=== PATIENT | male | born 1965 | race Caucasian/White ===

== ENCOUNTER 2024-02-06 12:14 | Emergency (ER) | payer OTHER ==
[2024-02-06 13:40] LABS: #Basophils 0.03 10x3/uL (0.0-0.2); #Eosinphils 0.14 10x3/uL (0.0-0.5); #Monocytes 0.36 10x3/uL (0.0-1.1); #Neutrophils 3.74 10x3/uL (1.5-8.4); %Basophils 0.5 % (0.0-2.0); %Eosinophils 2.5 % (0.0-6.0); %Lymphocytes 24.5 % (18.0-47.0); %Monocytes 6.3 % (0.0-10.0); Hematocrit 35.5 % (38.8-50.0); Hemoglobin 12.1 g/dL (13.5-17.5); Mean Corpuscular HGB CONC 34.1 g/dL (32.0-36.0); Mean Corpuscular Hemoglobin 33.3 pg (27.0-33.0); Mean Corpuscular Volume 97.8 fL (81.2-95.1); Mean Platelet Volume 11.1 fL (7.4-10.4); Platelet Count 134 10x3/uL (150-450); Red Blood Cell (RBC) Count 3.63 10x6/uL (4.32-5.72); White Blood Cell (WBC) Count 5.7 10x3/uL (3.5-10.5)
[2024-02-06 13:56] LABS: ALT (SGPT) 8 U/L (8-55); AST (SGOT) 17 U/L (5-34); Alkaline Phosphatase 83 U/L (40-110); Anion Gap 18 mmol/L (10-20); BUN (Urea Nitrogen) 82 mg/dL (8.4-25.7); Bilirubin, Total 0.3 mg/dL (0.2-1.2); Calc. Creatinine Clearance 0 mL/min (70-130); Calcium 7.9 mg/dL (7.8-10.44); Carbon Dioxide 23 mmol/L (22-29); Chloride 103 mmol/L (98-107); Estimated GFR 8; Globulin 3.5 g/dL (2.4-3.5); Glucose 144 mg/dL (70-105); Protein, Total 6.5 g/dL (6.0-8.3); Sodium 139 mmol/L (136-145)
[2024-02-06 14:02] LABS: Troponin I 0.039 ng/mL (< 0.028)
[2024-02-06 15:16] LABS: Troponin I 0.039 ng/mL (< 0.028)
== END 2024-02-06 17:45 | disposition home or self-care (01) ==
LOC: CSHERS 12:14
DX: T43.221A Poisoning by selective serotonin reuptake inhibitors, accidental (unintentional), initial encounter (principal); R53.1 Weakness; J44.9 Chronic obstructive pulmonary disease, unspecified; E11.9 Type 2 diabetes mellitus without complications; F17.210 Nicotine dependence, cigarettes, uncomplicated; Z79.4 Long term (current) use of insulin
CPT/HCPCS: 36415; 71045; 80053; 83880; 84484; 85025; 93005; 93010

== ENCOUNTER 2024-04-09 11:09 | Outpatient (CLI) | payer OTHER | END 2024-04-09 11:10 | disposition home or self-care (01) | LOC: CSHSLEEP 11:09 | PROVIDERS: ATTEND Family Medicine | DX: G47.33 Obstructive sleep apnea (adult) (pediatric) (principal); F41.9 Anxiety disorder, unspecified; E11.9 Type 2 diabetes mellitus without complications; E66.9 Obesity, unspecified; Z68.33 Body mass index [BMI] 33.0-33.9, adult; I63.9 Cerebral infarction, unspecified; J44.9 Chronic obstructive pulmonary disease, unspecified; I25.10 Atherosclerotic heart disease of native coronary artery without angina pectoris; I11.0 Hypertensive heart disease with heart failure; I50.9 Heart failure, unspecified | CPT/HCPCS: 95811 ==

== ENCOUNTER 2025-02-14 08:40 | Outpatient (CLI) | payer MEDICAID ==
[2025-02-14 10:47] LABS: INR-International Normal Ratio 1.2; PTT 27.4 sec (22.0-33.0); Prothrombin Time 12.6 sec (9.5-12.1)
[2025-02-14 10:53] LABS: Anion Gap 18 mmol/L (10-20); BUN (Urea Nitrogen) 33 mg/dL (8.4-25.7); Calc. Creatinine Clearance 0 mL/min (70-130); Calcium 9.2 mg/dL (7.8-10.44); Carbon Dioxide 27 mmol/L (22-29); Chloride 99 mmol/L (98-107); Glucose 103 mg/dL (70-105); Potassium 4.2 mmol/L (3.5-5.1); Sodium 140 mmol/L (136-145)
[2025-02-14 10:58] LABS: Hematocrit 38.2 % (38.8-50.0); Hemoglobin 11.7 g/dL (13.5-17.5); Mean Corpuscular Hemoglobin 31.9 pg (27.0-33.0); Mean Corpuscular Volume 104.1 fL (81.2-95.1); Red Blood Cell (RBC) Count 3.67 10x6/uL (4.32-5.72); White Blood Cell (WBC) Count 3.62 10x3/uL (3.5-10.5)
[2025-02-14 11:18] LABS: Platelet Count 114 10x3/uL (130-400)
== END 2025-02-14 08:41 | disposition home or self-care (01) ==
LOC: CSHLAB 08:40
PROVIDERS: ATTEND Internal Medicine Cardiovascular Disease
DX: Z01.812 Encounter for preprocedural laboratory examination (principal); I25.5 Ischemic cardiomyopathy
CPT/HCPCS: 80048; 85027; 85610; 85730

== ENCOUNTER 2025-02-19 09:57 | Day surgery (SDC) | payer MEDICAID ==
[2025-02-19] MEDS ORDERED: PROPOFOL 20 ML ONE (11:21)
[2025-02-19] MEDS ORDERED: KETAMINE 100 MG/ML (5ML VIAL) ONE (11:21)
[2025-02-19] MEDS ORDERED: CEFAZOLIN 1 GM VIAL ONE ×2 (11:57→12:20)
[2025-02-19 12:29] VITALS: BP 137/65; TEMP 97.9
[2025-02-19] MEDS ORDERED: Lidocaine 1% (PF) 30 ML VIAL ONE (12:50)
== END 2025-02-19 17:40 | disposition home or self-care (01) ==
LOC: CSHSDC 09:57
PROVIDERS: ATTEND Internal Medicine Cardiovascular Disease
PROC: 0JH608Z Insertion of Defibrillator Generator into Chest Subcutaneous Tissue and Fascia, Open Approach (ICD-10-PCS; principal; 2025-02-19)
PROC: 02HK3KZ Insertion of Defibrillator Lead into Right Ventricle, Percutaneous Approach (ICD-10-PCS; principal; 2025-02-19)
DX: I13.2 Hypertensive heart and chronic kidney disease with heart failure and with stage 5 chronic kidney disease, or end stage renal disease (principal); I50.22 Chronic systolic (congestive) heart failure; N18.6 End stage renal disease; I25.5 Ischemic cardiomyopathy; I25.10 Atherosclerotic heart disease of native coronary artery without angina pectoris; J44.9 Chronic obstructive pulmonary disease, unspecified; E11.22 Type 2 diabetes mellitus with diabetic chronic kidney disease; Z99.2 Dependence on renal dialysis; Z95.1 Presence of aortocoronary bypass graft; Z88.8 Allergy status to other drugs, medicaments and biological substances; Z91.030 Bee allergy status; Z90.49 Acquired absence of other specified parts of digestive tract; Z87.891 Personal history of nicotine dependence; Z79.02 Long term (current) use of antithrombotics/antiplatelets; Z79.84 Long term (current) use of oral hypoglycemic drugs; Z79.899 Other long term (current) drug therapy
CPT/HCPCS: 33249; 71045; 93641; C1721; C1763; C1777; J0690; J1580; J2250; J2704; J3373

== ENCOUNTER 2025-04-09 13:11 | Outpatient (CLI) | payer MEDICAID | END 2025-04-09 13:12 | disposition home or self-care (01) | LOC: CSHRAD 13:11 | PROVIDERS: ATTEND Internal Medicine Nephrology | DX: Z11.1 Encounter for screening for respiratory tuberculosis (principal) | CPT/HCPCS: 71046 ==

== ENCOUNTER 2025-05-09 09:16 | Outpatient (CLI) | payer MEDICAID | END 2025-05-09 09:17 | disposition home or self-care (01) | LOC: CSHWCC 09:16 | PROVIDERS: ATTEND Nurse Practitioner Family | DX: I87.333 Chronic venous hypertension (idiopathic) with ulcer and inflammation of bilateral lower extremity (principal); E11.622 Type 2 diabetes mellitus with other skin ulcer; E11.40 Type 2 diabetes mellitus with diabetic neuropathy, unspecified; E11.22 Type 2 diabetes mellitus with diabetic chronic kidney disease; E11.51 Type 2 diabetes mellitus with diabetic peripheral angiopathy without gangrene; L97.812 Non-pressure chronic ulcer of other part of right lower leg with fat layer exposed; L97.822 Non-pressure chronic ulcer of other part of left lower leg with fat layer exposed; I50.22 Chronic systolic (congestive) heart failure; D50.8 Other iron deficiency anemias; J44.9 Chronic obstructive pulmonary disease, unspecified; Z86.73 Personal history of transient ischemic attack (TIA), and cerebral infarction without residual deficits | CPT/HCPCS: 11042; 11045 ==

== ENCOUNTER 2025-05-23 09:01 | Outpatient (CLI) | payer MEDICAID | END 2025-05-23 09:02 | disposition home or self-care (01) | LOC: CSHWCC 09:01 | PROVIDERS: ATTEND Nurse Practitioner Family | DX: I87.333 Chronic venous hypertension (idiopathic) with ulcer and inflammation of bilateral lower extremity (principal); E11.622 Type 2 diabetes mellitus with other skin ulcer; L97.812 Non-pressure chronic ulcer of other part of right lower leg with fat layer exposed; L97.822 Non-pressure chronic ulcer of other part of left lower leg with fat layer exposed; E11.22 Type 2 diabetes mellitus with diabetic chronic kidney disease; N18.6 End stage renal disease; D63.1 Anemia in chronic kidney disease; E11.51 Type 2 diabetes mellitus with diabetic peripheral angiopathy without gangrene; E11.40 Type 2 diabetes mellitus with diabetic neuropathy, unspecified; J44.9 Chronic obstructive pulmonary disease, unspecified; I50.22 Chronic systolic (congestive) heart failure; D50.8 Other iron deficiency anemias; Z86.73 Personal history of transient ischemic attack (TIA), and cerebral infarction without residual deficits | CPT/HCPCS: 11042; 99214; G0463 ==

== ENCOUNTER 2025-05-29 15:53 | Emergency (ER) | payer MEDICAID ==
[2025-05-29 16:40] LABS: Hematocrit 39.8 % (38.8-50.0); Hemoglobin 13.0 g/dL (13.5-17.5); Mean Corpuscular Hemoglobin 34.8 pg (27.0-33.0); Mean Corpuscular Volume 106.4 fL (81.2-95.1); Platelet Count 163 10x3/uL (150-450); Red Blood Cell (RBC) Count 3.74 10x6/uL (4.32-5.72); White Blood Cell (WBC) Count 7.59 10x3/uL (3.5-10.5)
[2025-05-29 16:52] LABS: ALT (SGPT) 9 U/L (Less than 45); AST (SGOT) 20 U/L (11-34); Albumin 3.4 g/dL (3.1-4.5); Alkaline Phosphatase 104 U/L (40-110); Anion Gap 21 mmol/L (10-20); BUN (Urea Nitrogen) 25 mg/dL (8.4-25.7); Bilirubin, Total 1.4 mg/dL (0.3-1.2); CK (CPK) 62 U/L (30-200); Calc. Creatinine Clearance 0 mL/min (70-130); Calcium 9.5 mg/dL (7.8-10.44); Carbon Dioxide 25 mmol/L (22-29); Chloride 96 mmol/L (98-107); Globulin 4.7 g/dL (2.4-3.5); Glucose 153 mg/dL (70-105); Magnesium 1.9 mg/dL (1.6-2.6); Potassium 4.3 mmol/L (3.5-5.1); Sodium 138 mmol/L (136-145)
[2025-05-29] MEDS ORDERED: Ketorolac Tromethamine 30 MG (1 mL) VIAL ONE (17:11)
[2025-05-29 17:22] LABS: Anisocytosis MODERATE=16-30 cells (100X) (0-5/hpf); MDiff Complete? YES; Macrocytosis MODERATE=16-30 cells (100X) (0-5/hpf); Platelet Adequacy Comment Appears Adequate
== END 2025-05-29 17:49 | disposition home or self-care (01) ==
LOC: CSHERS 15:53
DX: J10.1 Influenza due to other identified influenza virus with other respiratory manifestations (principal); J44.9 Chronic obstructive pulmonary disease, unspecified; E11.22 Type 2 diabetes mellitus with diabetic chronic kidney disease; I12.0 Hypertensive chronic kidney disease with stage 5 chronic kidney disease or end stage renal disease; N18.6 End stage renal disease; Z95.1 Presence of aortocoronary bypass graft; F17.290 Nicotine dependence, other tobacco product, uncomplicated; Z79.899 Other long term (current) drug therapy; Z79.84 Long term (current) use of oral hypoglycemic drugs
CPT/HCPCS: 36415; 71045; 80053; 82550; 83605; 83735; 85025; 87040; 87428; 93005; 96374; J1885

== ENCOUNTER 2025-05-31 08:18 | Emergency (ER) | payer MEDICAID ==
[2025-05-31 09:41] LABS: Hematocrit 35.5 % (38.8-50.0); Hemoglobin 11.4 g/dL (13.5-17.5); Mean Corpuscular Hemoglobin 35.0 pg (27.0-33.0); Mean Corpuscular Volume 108.9 fL (81.2-95.1); Platelet Count 100 10x3/uL (150-450); Red Blood Cell (RBC) Count 3.26 10x6/uL (4.32-5.72); White Blood Cell (WBC) Count 8.50 10x3/uL (3.5-10.5)
[2025-05-31 10:01] LABS: ALT (SGPT) 10 U/L (Less than 45); AST (SGOT) 39 U/L (11-34); Albumin 2.5 g/dL (3.1-4.5); Alkaline Phosphatase 68 U/L (40-110); Anion Gap 25 mmol/L (10-20); BUN (Urea Nitrogen) 56 mg/dL (8.4-25.7); Bilirubin, Total 1.6 mg/dL (0.3-1.2); Calc. Creatinine Clearance 0 mL/min (70-130); Calcium 8.3 mg/dL (7.8-10.44); Carbon Dioxide 18 mmol/L (22-29); Chloride 100 mmol/L (98-107); Globulin 3.6 g/dL (2.4-3.5); Glucose 92 mg/dL (70-105); Potassium 4.3 mmol/L (3.5-5.1); Sodium 139 mmol/L (136-145)
[2025-05-31 10:18] LABS: Anisocytosis SLIGHT = 6-15 cells (100X) (0-5/hpf); Macrocytosis SLIGHT = 6-15 cells (100X) (0-5/hpf); Ovalocytes SLIGHT = 2-5 cells (100X) (0-1/hpf); Polychromasia SLIGHT = 2-3 cells (100X) (0-2/hpf)
[2025-05-31 10:19] LABS: MDiff Complete? YES; Platelet Adequacy Comment Appears Decreased
[2025-05-31] MEDS ORDERED: Sodium Bicarb 50 MEQ/50 ML Abboject 8.4% SYRINGE ONE (10:51)
[2025-05-31] MEDS ORDERED: Calcium Chloride 1 GM/10 ML Abboject SYRINGE ONE (10:51)
== END 2025-05-31 13:12 | disposition short-term general hospital (02) ==
LOC: CSHERS 08:18
DX: J10.1 Influenza due to other identified influenza virus with other respiratory manifestations (principal); I12.0 Hypertensive chronic kidney disease with stage 5 chronic kidney disease or end stage renal disease; E11.22 Type 2 diabetes mellitus with diabetic chronic kidney disease; N17.9 Acute kidney failure, unspecified; N18.6 End stage renal disease; I95.9 Hypotension, unspecified; E87.20 Acidosis, unspecified; R09.02 Hypoxemia; J44.9 Chronic obstructive pulmonary disease, unspecified; F17.290 Nicotine dependence, other tobacco product, uncomplicated; Z86.73 Personal history of transient ischemic attack (TIA), and cerebral infarction without residual deficits
CPT/HCPCS: 36415; 36416; 71045; 80053; 83605; 85025; 87040; 87077; 87149; 87186; 93005; 94640; 94760; 96374; 96375; J2919